=== PATIENT | male | born 1990 | race Asian ===

== ENCOUNTER 2025-07-20 20:01 | Emergency (ER) | payer OTHER ==
[~2025-07-20] VITALS: Ht 177.8 cm; Wt 83.0 kg
[2025-07-20] MEDS: IBUPROFEN 600 MG TAB PO ONE (22:52)
[2025-07-21] MEDS ORDERED: METH-1164 PO (01:13)
[2025-07-21] MEDS: ACETAMINOPHEN 500 MG TAB PO ONE (01:25)
[2025-07-21 01:30] VITALS: BP 148/99; TEMP 97.8; O2SAT 100
== END 2025-07-21 01:32 | disposition home or self-care (01) ==
LOC: M ED 20:01
DX: Z04.1 Encounter for examination and observation following transport accident (principal); M62.838 Other muscle spasm; M79.622 Pain in left upper arm; M25.532 Pain in left wrist